=== PATIENT | female | born 1945 | race Two or more races ===

== ENCOUNTER → 2020-03-11 | Outpatient (CLI) | payer OTHER ==
[~2020-03-11] MED LIST: ACET500 PO; ALBU90OI INH; ATOR20 PO; ATOR40TA PO; ATORVASTATIN CA80 MG PO; Aspir 8181 MG PO; BENZONATATE100 MG PO; CHEMOTHERAPY; DOCU100 PO; FLUT1DIS5 INH; IPRAT-ALBUT 0.5-3 ML NEB; Keflex500 MG PO; LEVFLO500 PO; LISI20 PO; LOSA50 PO; LOSARTAN POTASS50 MG PO; METO25ER PO; METOPROLOL PO; OMEP20ER PO; ONDA8 PO; Pentoxifylline400 MG PO; Prednisone20 MG PO; TIOT18 INH; VENTOLIN HFA 90 MCG; Zithromax250 MG PO
[2020-03-12 17:09] LABS: ADENOVIRUS F 40/41 Not Detected (Not Detected); ASTROVIRUS Not Detected (Not Detected); C DIFFICILE TOXIN A/B Not Detected (Not Detected); CAMPYLOBACTER Not Detected (Not Detected); CRYPTOSPORIDIUM Not Detected (Not Detected); CYCLOSPORA CAYETANENSIS Not Detected (Not Detected); ENTAMOEBA HISTOLYTICA Not Detected (Not Detected); ENTEROAGGREGATIVE E COLI Not Detected (Not Detected); ENTEROPATHOGENIC E COLI Not Detected (Not Detected); ENTEROTOXIGENIC E COLI Not Detected (Not Detected); GIARDIA LAMBLIA Not Detected (Not Detected); NOROVIRUS GI/GII Not Detected (Not Detected); PLESIOMONAS SHIGELLOIDES Not Detected (Not Detected); ROTAVIRUS A Not Detected (Not Detected); SALMONELLA Not Detected (Not Detected); SAPOVIRUS Not Detected (Not Detected); SHIGA-TOXIN-PRODUCING E COLI Not Detected (Not Detected); SHIGELLA/ENTEROINVASIVE E COLI Not Detected (Not Detected); VIBRIO Not Detected (Not Detected); VIBRIO CHOLERAE Not Detected (Not Detected); YERSINIA ENTEROCOLITICA Not Detected (Not Detected)
== END | disposition home or self-care (01) ==
LOC: LAB 13:09 → LAB SHORT 13:09
PROVIDERS: Family Medicine
DX: R19.7 Diarrhea, unspecified (principal)
CPT/HCPCS: 0097U; 83993

== ENCOUNTER 2020-04-08 15:00 | Inpatient (IN) | payer OTHER ==
[~2020-04-08] VITALS: Ht 165.1 cm; Wt 73.1 kg
[~2020-04-08 15:00] MED LIST changes: -ACET500 PO; -ALBU90OI INH; -ATOR40TA PO; -Aspir 8181 MG PO; -BENZONATATE100 MG PO; -FLUT1DIS5 INH; -IPRAT-ALBUT 0.5-3 ML NEB; -LOSA50 PO; -METO25ER PO; -OMEP20ER PO; -Pentoxifylline400 MG PO
[2020-04-08 15:17] LABS: BASOPHILS ABSOLUTE AUTO 0.13 K/mm3 (0.00-0.23); BASOPHILS PERCENT AUTO 1 % (0-2); EOSINOPHILS ABSOLUTE AUTO 0.04 K/mm3 (0.00-0.68); EOSINOPHILS PERCENT AUTO 0 % (0-6); Hematocrit 39.7 % (33.0-51.0); Hemoglobin 11.2 g/dL (11.5-16.0); IMMATURE GRAN ABSOLUTE AUTO 0.25 K/mm3 (0.00-0.10); IMMATURE GRAN PERCENT AUTO 1 % (0-1); LYMPHOCYTES ABSOLUTE AUTO 3.41 K/mm3 (0.84-5.20); LYMPHOCYTES PERCENT AUTO 17 % (21-46); MONOCYTES PERCENT AUTO 2 % (4-13); Mean Corpuscular HGB 23.5 pg (26.0-34.0); Mean Corpuscular HGB Conc 28.2 g/dL (31.5-36.5); Mean Corpuscular Volume 83 fL (80-100); Mean Platelet Volume 10.3 fL (9.1-12.4); NEUTROPHILS ABSOLUTE AUTO 16.12 K/mm3 (1.96-9.15); NEUTROPHILS PERCENT AUTO 79 % (41-73); Platelet Count 443 K/mm3 (150-400); RDW Coefficient Variation 22.4 % (11.7-14.2); Red Blood Cell Count 4.76 M/mm3 (3.80-5.20); White Blood Cell Count 20.35 K/mm3 (4.00-11.30)
[2020-04-08 15:32] LABS: International Normalized Ratio 1.01; Prothrombin Time Results 10.8 Sec (9.7-11.5)
[2020-04-08] MEDS ORDERED: LOSA50 PO (15:51)
[2020-04-08] MEDS ORDERED: METO25ER PO (15:52)
[2020-04-08] MEDS ORDERED: ATOR40TA PO (15:53)
[2020-04-08] MEDS ORDERED: TIOT18 INH (15:54)
[2020-04-08] MEDS ORDERED: IPRAT-ALBUT 0.5-3 ML NEB (15:55)
[2020-04-08] MEDS ORDERED: ALBU90OI INH (15:55)
[2020-04-08] MEDS ORDERED: OMEP20ER PO (15:56)
[2020-04-08] MEDS ORDERED: Pentoxifylline400 MG PO (15:56)
[2020-04-08] MEDS ORDERED: FLUT1DIS5 INH (15:57)
[2020-04-08] MEDS ORDERED: Aspir 8181 MG PO (15:58)
[2020-04-08 15:59] LABS: Alanine Aminotransfer (ALT/SGP 31 U/L (12-78); Albumin, Blood 3.3 g/dL (3.4-5.0); Albumin/Globulin Ratio 0.7 (0.8-1.8); Alk Phos 91 U/L (50-136); Anion Gap 9 mmol/L (6-16); Aspartate Aminotrans (AST/SGOT 39 U/L (12-37); Bilirubin, Total 0.3 mg/dL (0.1-1.0); Blood Urea Nitrogen 18 mg/dL (8-24); Bun/Creatinine Ratio 23.1 (12.0-20.0); CO2, Blood 26 mmol/L (21-32); Chloride, Blood 100 mmol/L (98-108); Creatinine, Blood 0.78 mg/dL (0.40-1.00); Globulin, Blood 4.5 g/dL (2.2-4.0); Glomerular Filtration Rate >60 (60-); Glucose, Blood 490 mg/dL (70-99); Potassium, Blood 4.8 mmol/L (3.5-5.5); Sodium, Blood 135 mmol/L (136-145); Total Protein, Blood 7.8 g/dL (6.4-8.2)
[2020-04-08 16:06] LABS: Troponin I 0.789 ng/mL (0.000-0.040)
[2020-04-08 16:17] LABS: Influenza A, PCR Negative (NEGATIVE); Influenza B, PCR Negative (NEGATIVE); SARS-Cov-2 (COVID-19) PCR, MMC Negative (NEGATIVE)
[2020-04-08 16:18] LABS: Resp Syncytial Virus, PCR Negative (NEGATIVE)
[2020-04-08] MEDS ORDERED: BENZONATATE100 MG PO (17:32)
[2020-04-08] MEDS ORDERED: ACET500 PO (17:33)
--- NOTE | 2020-04-08 19:00 | NUR ---
ASSUMED CARE NOTE: ASSUMED CARE OF PT AT 1900, RECEVIED REPORT FROM DEBI CARRERO. PT IS ALERT AND ORIENTEDX4. PT ABLE TO ANSWER QUESTIONS APPROPRIATLY. PT ON BIPAP WITH SETTINGS AT 14/8, FiO2 100% PT IN TRIPOD POSITION. SPO2 AT 95% LABORED BREATHING NOTED. RIGHT THORA VENT IN PLACE CONNECTED TO WATERSEAL, SMALL AMOUNTS OF SEROSANGUANEIOUS NOTED. PT STS SHE CANNOT LAY FLAT, DUE TO INCREASED DYSPNEA. BP STABLE. PT STS HER RIGHT LOWER LEG IS ALWAYS MORE SWOLLEN. CALLED MARILEE, HER CAREGIVER FOR MED REC AND HEALTH HISTORY.
--- NOTE | 2020-04-08 19:10 | NUR ---
PT ARRIVES FROM ER AT 1900. REPORT FROM TOMASA CARRERO. PT ADMITTED FOR RESP FAILURE. PT SPEAKING IN SHORT SENTANCES. ANSWERS QUESTIONS APPROPRIATELY. REQUESTING THAT BIPAP MASK BE TAKEN OFF, ALSO REQUESTING WATER. INFORMED THAT WE ARE UNABLE TO DO EITHER AT THIS TIME. AGREEABLE TO WEAR BIPAP. FIO2 100%. THORAVENT TO RIGHT CHEST WALL, ARRIVES TO UNIT CLAMPED. PLACED TO WATER SEAL. PER CHUYITA LONGO, PT TO REMAIN IN [place] PRECAUTIONS UNTIL REPEAT COVID TEST IS RESULTED. REPORT TO TONY CARRERO.
[2020-04-08 20:43] LABS: Adenovirus Not Detected (NOT DETECT); Bordetella pertussis Not Detected (NOT DETECT); Chlamydophila pneumoniae Not Detected (NOT DETECT); Coronavirus 229E Not Detected (NOT DETECT); Coronavirus HKU1 Not Detected (NOT DETECT); Coronavirus NL63 Not Detected (NOT DETECT); Coronavirus OC43 Not Detected (NOT DETECT); Human Metapneumovirus Not Detected (NOT DETECT); Human Rhinovirus/Enterovirus Not Detected (NOT DETECT); Influenza A/2009-H1 Not Detected (NOT DETECT); Influenza A/H1 Not Detected (NOT DETECT); Influenza A/H3 Not Detected (NOT DETECT); Influenza B Not Detected (NOT DETECT); Mycoplasma pneumoniae Not Detected (NOT DETECT); Parainfluenza Virus 1 Not Detected (NOT DETECT); Parainfluenza Virus 2 Not Detected (NOT DETECT); Parainfluenza Virus 3 Not Detected (NOT DETECT); Parainfluenza Virus 4 Not Detected (NOT DETECT); Respiratory Syncytial Virus Not Detected (NOT DETECT); SARS-Cov-2 (COVID-19), BioFire Not Detected (NOT DETECT)
[2020-04-08 21:13] LABS: Source, Urine Catheter
[2020-04-08 21:16] LABS: Appearance, Urine Hazy (Clear); Bilirubin, Urine Neg (Neg); Blood, Urine 2+ (Neg); Color, Urine Yellow (P-Yellow); Glucose Qualitative, Urine 2+ (Neg); Ketones, Urine 1+ (Neg); Leukocyte Esterase, Urine Neg (Neg); Nitrite, Urine Neg (Neg); Protein, Urine 3+ (Neg); Urobilinogen, Urine NORM (Normal)
[2020-04-08 21:22] LABS: Bacteria Many /hpf; Red Blood Cells, Urine 0-2 /hpf (0-2); Squamous Epithelial Cells Few /hpf (Few)
[2020-04-08 21:34] LABS: Magnesium, Blood 2.4 mg/dL (1.6-2.4)
[2020-04-08 21:38] LABS: Phosphorus, Blood 5.8 mg/dL (2.5-4.9); Troponin I 2.06 ng/mL (0.000-0.040)
--- NOTE | 2020-04-08 21:46 | NUR ---
UPDATE: 16F SRIVASTAVA PLACED, DRAINING TO GRAVITY, YELLOW CLOUDY URINE NOTED, URINE SAMPLE SENT TO LAB. PT WAS ABLE TO TOLERATE BEING ON BACK DURING SRIVASTAVA INSERTION. TALKED TO PATIENT REGARDING CT AND IF SHE AGREED TO BE ABLE TO GO TODAY. CHUYITA AGGARWAL NOTIFED OF PT DECISION. HEPARIN DRIP STARTED PER EMAR.
[2020-04-08 21:50] LABS: PCO2 Arterial 47.2 mmHg (35-45); PO2 Arterial 133 mmHg (80-100)
--- NOTE | 2020-04-09 03:00 | NUR ---
CALLED REGARDING ELEVATED BP, INCREASED WORK OF BREATHING, RR IN THE HIGH 30'S, CRACKLES HEARD T/O. LASIX ORDERED. NS AT 100ML/HR TURNED OFF. PT STS SHE IS ANXIOUS, ATIVAN GIVEN PER EMAR.
[2020-04-09 03:13] LABS: BASOPHILS ABSOLUTE AUTO 0.01 K/mm3 (0.00-0.23); BASOPHILS PERCENT AUTO 0 % (0-2); EOSINOPHILS PERCENT AUTO 0 % (0-6); Hematocrit 33.3 % (33.0-51.0); Hemoglobin 9.8 g/dL (11.5-16.0); IMMATURE GRAN ABSOLUTE AUTO 0.08 K/mm3 (0.00-0.10); IMMATURE GRAN PERCENT AUTO 1 % (0-1); LYMPHOCYTES ABSOLUTE AUTO 0.92 K/mm3 (0.84-5.20); LYMPHOCYTES PERCENT AUTO 7 % (21-46); MONOCYTES ABSOLUTE AUTO 0.16 K/mm3 (0.16-1.47); MONOCYTES PERCENT AUTO 1 % (4-13); Mean Corpuscular HGB 23.8 pg (26.0-34.0); Mean Corpuscular HGB Conc 29.4 g/dL (31.5-36.5); Mean Corpuscular Volume 81 fL (80-100); Mean Platelet Volume 10.4 fL (9.1-12.4); NEUTROPHILS ABSOLUTE AUTO 12.22 K/mm3 (1.96-9.15); NEUTROPHILS PERCENT AUTO 91 % (41-73); Platelet Count 240 K/mm3 (150-400); RDW Coefficient Variation 22.4 % (11.7-14.2); RDW Standard Deviation 64.6 fL (35.1-46.3); Red Blood Cell Count 4.11 M/mm3 (3.80-5.20); White Blood Cell Count 13.39 K/mm3 (4.00-11.30)
[2020-04-09 03:30] LABS: Anion Gap 8 mmol/L (6-16); Blood Urea Nitrogen 22 mg/dL (8-24); Bun/Creatinine Ratio 28.2 (12.0-20.0); CO2, Blood 24 mmol/L (21-32); Calcium, Blood 8.8 mg/dL (8.5-10.1); Chloride, Blood 107 mmol/L (98-108); Creatinine, Blood 0.78 mg/dL (0.40-1.00); Glomerular Filtration Rate >60 (60-); Glucose, Blood 138 mg/dL (70-99); Potassium, Blood 4.3 mmol/L (3.5-5.5); Sodium, Blood 139 mmol/L (136-145)
--- NOTE | 2020-04-09 03:56 | NUR ---
UPDATE: HEPARIN PLACED ON STAND-BY, RADHA FROM PHARMACY CALLED. WILL REDRAW PTT AT 0440 AND RESTART HEPARIN AT 13U/KG/HR.
--- NOTE | 2020-04-09 05:48 | NUR ---
SHIFT SUMMARY: PT CONTINUES TO BE ALERT AND ORIENTEDX4. PT CONTINUES TO BE ON BIPAP 10/12, FiO2 OF 50%, SPO2 AT 95% PT RR AT 20 WHEN AT REST, WITH EXERTION RR UP TO 39. PT BECOMES ANXIOUS AND NEEDS TO BE COACHED TO CONTROL BREATHING. PT GIVEN ATIVAN ONCE THIS SHIFT FOR ANXIETY. PT HAS BEEN IN NSR WITH HR BETWEEN 80-90. SBP IN THE 170'S THIS SHIFT, DECREASED AFTER LASIX DOSE. GOOD URINE OUTPUT THIS SHIFT, SRIVASTAVA PATENT AND DRAINING TO GRAVITY. PT BOOSTED UP IN BED FREQUENTLY THIS SHIFT. PT DOES NOT LIKE TO BE REPOSITIONED FROM SIDE TO SIDE, STS IT MAKES HER BREATHING WORSE. SLIGHT SHIFTS IN HIPS MADE THIS SHIFT WITH PILLOWS WHEN PT AGREES. PT GIVEN FENTYNAL FOR PAIN TO THE RIGHT SIDE OF CHEST, STS ITS WORSE WITH COUGH. WILL CONTINUE TO MONITOR PT UNTIL REPORT IS GIVEN TO ONCOMING SHIFT.
--- NOTE | 2020-04-09 07:30 | NUR ---
ASSUMED CARE OF PT AT 0700. REPORT FROM TONY CARRERO. PT RESTING IN BED. WAKES c VERBAL STIMULI. FOLLOWS COMMANDS. A&OX 4. PT C/O DRYNESS TO MOUTH. LUNGS DIMINISHED IN BASES. PT P/W/D. BIPAP IN PLACE, 14/8 50%. HEPARIN STARTED AT SHIFT CHANGE PER PHARMACY, 13 UNITS/KG/HR. THORAVENT TO RIGHT ANTERIOR CHEST WALL. ECCHYMOSIS NOTED, SCANT BLOODY DRAINAGE UNDER DRESSING. CONNECTED TO WATER SEAL. NO CREPITIS NOTED. ABD ROUND, SOFT, TENDER TO LIGHT PALPATION. SRIVASTAVA IN PLACE, PATENT, DRAINING CLOUDY YELLOW URINE TO GRAVITY. PT IN EMERSON POSITION. ABLE TO SHIFT HIPS AND REPOSITION SELF IN BED. VSS. WILL CONTINUE TO MONITOR.
--- NOTE | 2020-04-09 09:49 | NUR ---
DR PERALES ROUNDS PT TAKEN OFF BIPAP. PLACED ON OXYMIZER AT 12 L. O2 SATS 94%. RR. HIGH20'S. ENCOURAGED SLOW DEEP RESP. PT REPORTS SLIGHT INCREASED WOB s BIPAP. WILL MONITOR CLOSELY. WATER SEAL CONNECTED TO DRAIN PORT. DISCONNECTED. SUCTION PORT CAPPED. AWAITING ECHO.
--- NOTE | 2020-04-09 17:06 | NUR ---
Clinical Visit: Pt is alert, oriented, pleasant. Pt has her friend, Irene, present. They are asking for POA paperwork and advance directive documents to fill out. Pt reports that her daugher, Wen, is dying of colon cancer, so she has to fill out new forms for her future planning now. Presented and explained advance directive. Instructed on how to complete the form. Provided forms for [place] Last Will and Testament; also [place] POA paperwork to assist with their planning. [facility] they leave the hospital. They have some urgency with this task. They are appreciative of palliative care visit. Pt reports that she is "uncomfortable" but not in pain. Will remain available.
--- NOTE | 2020-04-09 17:24 | NUR ---
SHIFT SUMMARY PT TRANSITIONED TO OXYMIZER THIS SHIFT. TOLERATED WELL. PT INCREASED WOB AND DYSNEA c EXERTION. LUNGS DIMINISHED IN BASES. THORAVENT PORTS REMAIN CLOSED. DRESSING REINFORCED. NO CREPITIS NOTED. SLIGHT INCREASE IN ECCHYMOSIS. HTN NOTED. DR DIAZ NOTIFIED. HOME MEDS ORDERED. SPEECH EVAL UNABLE TO BE COMPLETED TODAY. PT TOLERATED SIPS OF WATER s DIFFICULTIES. DIET HELD. ECHO COMPLETE TODAY. TROPONINS TRENDING DOWN. HEPARIN D/C'D. ANTIBIOTICS CHANGED. SRIVASTAVA PATENT AND DRAINING TO GRAVITY, 1600 ML CLEAR YELLOW URINE OUT. WILL CONTINUE TO MONITOR.
--- NOTE | 2020-04-09 19:02 | NUR ---
echocardiogram complete
--- NOTE | 2020-04-09 19:03 | NUR ---
echocardiogram complete
--- NOTE | 2020-04-09 19:58 | NUR ---
ASSUMED CARE NOTE: ASSUMED CARE OF PT AT 1900, RECEVIED REPORT FROM DEBI CARRERO. PT IS ALERT AND ORIENTED X3, ABLE TO FOLLOW COMMANDS AND COMMUNICATE NEEDS. PT IS ON 10L OF 02 VIA OXYMIZER, WITH SPO2 AT 98%, WILL TITRATE DOWN. NO RESPRIATORY DISTRESS NOTED. PT HAS A MOIST COUGH. PT IN SINUS TACH WITH HR AT 113. THORA VENT TO RIGHT CHEST, BRUSING NOTED AROUND INSERTION SITE. SRIVASTAVA DRAINING TO GRAVITY. PT REFUSED TO BE BOOSTED UP IN BED OR REPOSITIONED. STS THE BED IS UNCOMFORTABLE AND THAT SHE WILL MOVE HERSELF WHEN NEEDED
[2020-04-10 04:01] LABS: BASOPHILS ABSOLUTE AUTO 0.02 K/mm3 (0.00-0.23); BASOPHILS PERCENT AUTO 0 % (0-2); EOSINOPHILS PERCENT AUTO 0 % (0-6); Hematocrit 30.3 % (33.0-51.0); Hemoglobin 8.9 g/dL (11.5-16.0); IMMATURE GRAN ABSOLUTE AUTO 0.12 K/mm3 (0.00-0.10); IMMATURE GRAN PERCENT AUTO 1 % (0-1); LYMPHOCYTES PERCENT AUTO 3 % (21-46); MONOCYTES ABSOLUTE AUTO 0.22 K/mm3 (0.16-1.47); MONOCYTES PERCENT AUTO 1 % (4-13); Mean Corpuscular HGB 24.1 pg (26.0-34.0); Mean Corpuscular HGB Conc 29.4 g/dL (31.5-36.5); Mean Corpuscular Volume 82 fL (80-100); Mean Platelet Volume 10.7 fL (9.1-12.4); NEUTROPHILS ABSOLUTE AUTO 14.94 K/mm3 (1.96-9.15); NEUTROPHILS PERCENT AUTO 95 % (41-73); Platelet Count 261 K/mm3 (150-400); RDW Coefficient Variation 23.7 % (11.7-14.2); RDW Standard Deviation 67.6 fL (35.1-46.3)
[2020-04-10 04:22] LABS: Magnesium, Blood 2.6 mg/dL (1.6-2.4)
[2020-04-10 04:23] LABS: Anion Gap 3 mmol/L (6-16); Blood Urea Nitrogen 26 mg/dL (8-24); Bun/Creatinine Ratio 41.5 (12.0-20.0); CO2, Blood 30 mmol/L (21-32); Chloride, Blood 109 mmol/L (98-108); Creatinine, Blood 0.63 mg/dL (0.40-1.00); Glomerular Filtration Rate >60 (60-); Glucose, Blood 169 mg/dL (70-99); Phosphorus, Blood 3.1 mg/dL (2.5-4.9); Potassium, Blood 4.4 mmol/L (3.5-5.5); Sodium, Blood 142 mmol/L (136-145)
--- NOTE | 2020-04-10 05:44 | NUR ---
SHIFT SUMMARY: PT CONTINUES TO BE ON 6-8 L OF O2 VIA OXYMIZER, WITH SPO2 AT 93-97% WHEN PT MOVES AROUND IN BED, SHE BECOMES TACHYPNIC, RR IN THE MID 30'S. PT IN SINUS TO SINUS TACH HR BETWEEN 90-110. PRN BP MEDS GIVEN THIS SHIFT FOR SBP HIGHER THAN 160, WITH GOOD EFFECT. PT GIVEN ATIVAN PRN FOR ANXIETY, GOOD EFFECT NOTED. PT HAS BEEN ANXIOUS AND UNABLE TO CATCH HER BREATH, SATURATIONS DURING THESE TIMES ARE ABOVE 90% PT IS ABLE TO BE COACHED TO CONTROL BREATHING. CHEST TUBE TO RIGHT CHEST STILL IN PLACE, VALVES HAVE REMAINED CLOSED. SRIVASTAVA PATENT AND DRAINING TO GRAVITY. PT HAS REFUSED REPOSITIONS THIS SHIFT, SHIFTS WEIGHT IN BED FROM SIDE TO SIDE AND IS LIMITED IN MOVEMENT DUE TO DYSPNEA WITH ACTIVITY.
--- NOTE | 2020-04-10 06:32 | NUR ---
UPDATE: WORK OF BREATHING INCREASED, PT HAS A WET COUGH, WHEEZY T/O. INCREASED SPO2 TO 10L OF OXYMIZER. PT STS SHE NEEDS WATER, EXPLAINED TO PT THAT SHE CANNOT HAVE WATER DUE RISK OF ASPIRATION. PT GIVEN ORAL SWABS TO HELP THE DRY MOUTH. RT CALLED TO BEDSIDE
--- NOTE | 2020-04-10 06:45 | NUR ---
UPDATE: PT PLACED ON BIPAP 04/03, FiO2 AT 50% RR IN THE MID 30% , SPO2 AT 95% PT UPSET SHE CANNOT HAVE ANY WATER AT THIS TIME.
--- NOTE | 2020-04-10 08:56 | NUR ---
ASSUMED CARE OF PT AT 0700. REPORT FROM TONY CARRERO. PT ON BIPAP AT START OF SHIFT. CHANGED TO OXYMIZER AT 10L. O2 SATS >95%. WILL CONTINUE TO TITRATE. LUNGS COARSE c EXPIRATORY WHEEZES IN RIGHT LOBE. MOIST COUGH NOTED. PT C/O DRY MOUTH. THORAVENT TO RIGHT CHEST WALL. ECCHYMOSIS NOTED. SERISANGIOUS DRAINAGE IN BOX. PT SPEAKING IN FULL SENTANCES. DYSNEA c EXERTION. MAEW. PT ABLE TO SHIFT HIPS AND REPOSITION SELF IN BED. VSS. WILL CONTINUE TO MONITOR.
--- NOTE | 2020-04-10 17:09 | NUR ---
SHIFT SUMMARY PT ON 3L VIA NC. PT TOLERATING WELL. WHEN PT UNDISTURBED, RR 15-25. PT BECOMES TACHYPENIC DURING ASSESSMENTS OR WHEN VISITORS ARE IN ROOM. ENCOURAGED SLOW RESP, O2 SATS >88% DURING THESE TIMES. LUNGS DIMINISHED THROUGHOUT. THORAVENT TO RIGHT CHEST WALL UNCHANGED. 10 ML OF SERISANGIOUS FLUID REMOVED. NO AIR LEAK DETECTED. ANTICIPATE REMOVAL TOMORROW. PT c MOIST COUGH, INCREASED DURING THIS SHIFT. PT c INTERMITTANT PERIODS OF CONFUSION, REORIENTS EASILY. CAREGIVER STATES THIS IS NORMAL FOR HER. UP TO CHAIR FOR SEVERAL HOURS. TOLERATED WELL. SRIVASTAVA PATENT, DRAINING CLEAR YELLOW URINE TO GRAVITY. LR @ 75 ML/HR STARTED THIS SHIFT. ADDRESSED NPO STATUS c DR DIAZ, OK'D FOR PUREE DIET c NECTAR THICK. AWAITING SPEECH EVAL TOMORROW. WILL CONTINUE TO MONITOR UNTIL REPORT TO ONCOMING NURSE.
--- NOTE | 2020-04-10 19:00 | NUR ---
ASSUMED CARE NOTE: ASSUMED CARE OF PT AT 1900, RECEVIED REPORT FROM DEBI CARRERO. PT IS ALERT AND ORIENTED TO SELF, PLACE, AND FOLLOWING DIRECTIONS. PT ON 3L VIA NC, WHICH IS BASELINE, SPO2 ABOVE 90% BREATHING LABORED, RR IN THE 30'S, RT AT BEDSIDE. PT HAVING NON-PRODUCTIVE COUGH. PT IS IN SINUS TACH WITH HR BETWEEN 90-120. SRIVASTAVA PATENT DRAINING TO GRAVITY. PT POSITIONED IN HIGH FOLWERS, TAKING MEDS WHOLE WITH NECTAR THICK WATER. NO SIGNS OF ASPIRATION NOTED. WILL CONTINUE TO MONITOR PT T/O SHIFT.
--- NOTE | 2020-04-10 23:03 | NUR ---
UPDATE: PT STS SHE IS HAVING A HARD TIME BREATHING. RR IN THE HIGH 30'S, SPO2 AT 85% WORK OF BREATHING INCREASED. PT PLACED ON BIPAP /, FiO2 AT 40%, SPO2 INCREASE TO 93% ATIVAN GIVEN PRN. BP MEDS ALSO GIVEN FOR SBP OF 180.
--- NOTE | 2020-04-11 01:08 | NUR ---
UPDATE: PT STS SHE IS CONFUSED, UNABLE TO STATE WHERE SHE IS. ABLE TO STATE [place] AND YEAR. PT STS SHE DOES NOT WANT THE BIPAP MASK, IS ANXIOUS AND STS SHE CANNOT BREATH. PT PLACED ON 5L OF 02 VIA NC, SPO2 AT 95% SBP 200. CALLED , ORDERS TO PLACE PT ON PRECEDEX AND BACK ON BIPAP. RT MADE AWARE. BP MEDS CHANGED, SEE EMAR.
[2020-04-11 03:33] LABS: BASOPHILS PERCENT AUTO 0 % (0-2); EOSINOPHILS PERCENT AUTO 0 % (0-6); Hematocrit 27.6 % (33.0-51.0); IMMATURE GRAN ABSOLUTE AUTO 0.08 K/mm3 (0.00-0.10); IMMATURE GRAN PERCENT AUTO 1 % (0-1); LYMPHOCYTES ABSOLUTE AUTO 0.42 K/mm3 (0.84-5.20); LYMPHOCYTES PERCENT AUTO 5 % (21-46); MONOCYTES ABSOLUTE AUTO 0.22 K/mm3 (0.16-1.47); MONOCYTES PERCENT AUTO 3 % (4-13); Mean Corpuscular HGB 24.1 pg (26.0-34.0); Mean Corpuscular Volume 83 fL (80-100); Mean Platelet Volume 10.7 fL (9.1-12.4); NEUTROPHILS ABSOLUTE AUTO 7.97 K/mm3 (1.96-9.15); NEUTROPHILS PERCENT AUTO 92 % (41-73); Platelet Count 223 K/mm3 (150-400); RDW Coefficient Variation 23.9 % (11.7-14.2); Red Blood Cell Count 3.32 M/mm3 (3.80-5.20); White Blood Cell Count 8.69 K/mm3 (4.00-11.30)
[2020-04-11 03:50] LABS: Anion Gap 2 mmol/L (6-16); Blood Urea Nitrogen 33 mg/dL (8-24); Bun/Creatinine Ratio 54.9 (12.0-20.0); CO2, Blood 31 mmol/L (21-32); Chloride, Blood 113 mmol/L (98-108); Glomerular Filtration Rate >60 (60-); Glucose, Blood 174 mg/dL (70-99); Magnesium, Blood 2.5 mg/dL (1.6-2.4); Phosphorus, Blood 2.5 mg/dL (2.5-4.9); Potassium, Blood 4.1 mmol/L (3.5-5.5); Sodium, Blood 146 mmol/L (136-145)
--- NOTE | 2020-04-11 06:26 | NUR ---
SHIFT SUMMARY: SEE PREVIOUS NOTES. PT BECAME CONFUSED EARLIER IN THE SHIFT, UNABLE TO TAKE DEEP BREATHS, SPO2 IN THE 70'S. PT CONTINUES TO BE ON BIPAP WITH SETTINGS AT 12/6, FiO2 OF 30%, SPO2 ABOVE 90% RR BETWEEN 18-25. PT WAS PLACED ON PRECEDEX THIS TO HELP WITH BIPAP. PT CONTINUES TO BE CONFUSED AND RESTRAINTS WERE APPLIED TO KEEP BIPAP ON. PT WILL PULL ON LINES AND BIPAP OFF WHEN OUT OF RESTRAINTS AND WILL SCREAM "NO NO" PT CONTINUES TO COUGH, NO SECRETIONS NOTED. PT IS IN SINUS RYTHYM WITH HR IN THE 70'S-80'S. SRIVASTAVA DRAINING TO GRAVITY. PT BOOSTED UP IN BED OFTEN. PRECEDEX AT 0.6MCG/KG/HR. WILL CONTINUE TO MONITOR PT UNTIL REPORT IS GIVEN TO ONCOMING SHIFT.
--- NOTE | 2020-04-11 08:15 | NUR ---
ASSESSMENT- PT ASLEEP, OPENS EYES TO NAME, PRECEDEX AT 0.6 MCG/KG/HR-DECREASING TO ASSESS MENTAL STATUS. DOESN'T FOLLOW DIRECTIONS. NSR, BP STABLE. 2 PIV WITH LR AT 50 CC/HR, NS TKO. LUNGS CLEAR, DECREASED LEFT BASE, NO RESPIRATORY DISTRESS AT REST, RIGHT UPPER THORAVENT INTACT, 13 CC DRAINED OFF SEROSANG FLUID. UO VIA SRIVASTAVA. REPOSITIONED. BILATERAL WRIST RESTRAINTS TO PREVENT PULLING OF OXYGEN.
--- NOTE | 2020-04-11 09:00 | NUR ---
PRECEDEX TITRATED OFF, CHANGED TO NASAL CANNULA, SATURATIONS MAINTAINING, ABLE TO FOLLOW BRIEF COMMANDS, KNOWS NAME, STATES SHE IS "IN HER ATTIC", EXPLAINED PLAN OF CARE. REASSURANCE GIVEN. WILL MONITOR.
--- NOTE | 2020-04-11 09:15 | NUR ---
PT VERY CONFUSED, PULLING AT LINES, UNABLE TO FOLLOW DIRECTIONS. INCREASED WORK OF BREATHING, SATURATIONS STABLE BUT RESP RATE UP TO 30 BPM, BP ELEVATED PRECEDEX RESTARTED, BIPAP ON, RESTING NOW.
[2020-04-11 10:39] LABS: Automated BF RBC Count 0.011 M/mm3 (0-0); Automated BF WBC Count 0.459 K/mm3 (0-999); Body Fluid WBC Count 459 /mm3 (0-999); RBC Count, Body Fluid 11000 /mm3 (0-0)
[2020-04-11 11:01] LABS: Glucose, Body Fluid 119 mg/dL; Lactate Dehydrogenase, Body Fl 443 U/L; Protein, Body Fluid 2.8 g/dL
[2020-04-11 11:18] LABS: pH, Body Fluid 8.4
[2020-04-11 11:31] LABS: Appearance, Body Fluid Hazy (Clear); Color, Body Fluid L Yellow (None-Yellow); Total Cell Count, Body Fluid 100
--- NOTE | 2020-04-11 11:39 | NUR ---
DR. ACEVEDO HERE-UPDATED. PLANS TO DC THORAVENT TODAY. PT HAS BEEN RESTING. BIPAP OFF NOW, MAINTAINING SATURATIONS WITH NASAL CANNULA. PT WITH PARANOID BEHAVIOR, CONFUSED. ATTEMPT TO REASSURE BUT UNABLE. REFUSED PILLS, TRIES TO PULL ALL LINES OFF. REPOSITIONED. PLEURAL FLUID SENT FOR LABS/CULTURE PER DR. ACEVEDO. CONGESTED COUGH. BP ELEVATES WHEN AWAKE, UNCOMFORTABLE.
--- NOTE | 2020-04-11 12:25 | NUR ---
DR. MELENDEZ HERE-UPDATED, SPOKE WITH DR. ACEVEDO REGARDING THORAVENT. DR. GARDNER HERE-UPDATED REGARDING PT'S PARANOID BEHAVIOR, ELEVATED BP-IV LABETOLOL ORDERED.
[2020-04-11 12:27] LABS: Alanine Aminotransfer (ALT/SGP 53 U/L (12-78); Albumin, Blood 3.1 g/dL (3.4-5.0); Albumin/Globulin Ratio 0.9 (0.8-1.8); Alk Phos 61 U/L (50-136); Anion Gap 3 mmol/L (6-16); Aspartate Aminotrans (AST/SGOT 41 U/L (12-37); Bilirubin, Total 0.4 mg/dL (0.1-1.0); Blood Urea Nitrogen 33 mg/dL (8-24); Bun/Creatinine Ratio 57.6 (12.0-20.0); CO2, Blood 31 mmol/L (21-32); Calcium, Blood 9.3 mg/dL (8.5-10.1); Chloride, Blood 112 mmol/L (98-108); Creatinine, Blood 0.57 mg/dL (0.40-1.00); Globulin, Blood 3.6 g/dL (2.2-4.0); Glomerular Filtration Rate >60 (60-); Glucose, Blood 154 mg/dL (70-99); LDL Direct Measurement 63 mg/dL (0-130); Sodium, Blood 146 mmol/L (136-145); Total Protein, Blood 6.7 g/dL (6.4-8.2)
--- NOTE | 2020-04-11 12:50 | NUR ---
DR. ACEVEDO IN TO REMOVE THORAVENT. NO SIGNS OF BLEEDING. 4X4 AND CLEAR OCCLUSIVE DRESSING PLACED. GECKCO NASAL PAD PLACED OVER THE BRIDGE OF THE NOSE PT WAS COMPLAINING THAT THE BIPAP MASK WAS HURTING HER NOSE. PT REMOVED THE MASK-DESPITE BEING IN BILATERAL SOFT WRIST RESTRAINTS. TITRATED PRECEDEX UP TO 0.7 MCG/MIN-PT RESTING QUIETLY ON BIPAP AT THIS TIME. SATS >90%.
--- NOTE | 2020-04-11 14:15 | NUR ---
VSS, PRECEDEX CONTINUES AT 0.7 AWAKENS EASILY TO NAME, CONFUSED. ABLE TO DO ORAL CARE-HAD REFUSED BEFORE.
--- NOTE | 2020-04-11 16:30 | NUR ---
VSS. HUNT, PT'S FRIEND HERE-UPDATED, TALKED WITH PALLIATIVE CARE RN. PT AWAKENS TO NAME. CONTINUE TO MONITOR
--- NOTE | 2020-04-11 17:42 | NUR ---
Initial spiritual care note: I met with Sherly's friend Irene, at bedside. Sherly slept peacefully throughout conversation. Irene has been taking care of Sherly for many years. She feels like family. Sherly has one dtr who has recently been told she is dying of cancer. Mother and dtr have a turbulent relationship according to Irene. Irene states that she doesn't want pt to suffer anymore. I provided theraputic listening and affirmation. Gentle insurance counselor was well recieved. Irene appears to understand that pt may be nearing end-of-life. Prayer for a clear path and God's seema provided at request. Irene and I had an easy rapport and I will remain available.
--- NOTE | 2020-04-11 18:15 | NUR ---
VSS. PRECEDEX AT 0.5, AWAKENS EASILY, REACHES FOR MASK WHEN AWAKE, EXPLAINED PLAN OF CARE, REASSURANCE GIVEN. NSR. SBP STABLE. REPOSITIONED, BILATERAL WRIST RESTRAINTS ON. UO GOOD VIA SRIVASTAVA
--- NOTE | 2020-04-11 20:29 | NUR ---
ASUMED CARE AT 1900/ AROUSED EASILY AND ORIRNTED TO SELF. SOME HESITATION TO USE INHALER OFFERED BY RT. SAID IT WAS SOMEONE ELSES. REASSURED. REMOVED BIPAP AT 04/03.. 30% FIO2 TV AVERAGE 600. RR AVERAGE 24. NOW AT 4L NC AND SATS WNL. ACCEPTS FULL MOUTH CARE W/ PEROXIDE SOLUTION. NO RESISTANCE OR REFUSAL. SATS WNL FOR ABOUT 40 MIN THEN STARTING TO GET ANXIOUS. AND RR 40. BIPAP BACK AT SAME SETTINGS. PRECEDEX AT 0.5MCG/KG/HR .. THEN WHILE RESTLESS AND PULLING AGAINST RESTRAINTS, PRECEDEX UP TO MAX OF 0.7MCG/KG/HR. SETTLING SLOWLY. WHILE OFF BIPAP, GOOD EFFORT TO COUGH AND SWALLOWS PRODUCED SPUTUM. RT CW YAMILE DSG , POST DC TODAY, DRY AND INTACT AND NO SUB Q EMPHYSEMA PALPATED.
--- NOTE | 2020-04-11 21:36 | NUR ---
DUE TO LEAKING RT AC PRECEDEX IV, REDUCED PRECEDEX FROM 0.5-0.2. VS WNL. IV DCD. CHANGED TO NEW SITE.
[2020-04-12 04:50] LABS: BASOPHILS ABSOLUTE AUTO 0.02 K/mm3 (0.00-0.23); BASOPHILS PERCENT AUTO 0 % (0-2); EOSINOPHILS PERCENT AUTO 0 % (0-6); Hemoglobin 8.7 g/dL (11.5-16.0); IMMATURE GRAN ABSOLUTE AUTO 0.17 K/mm3 (0.00-0.10); IMMATURE GRAN PERCENT AUTO 1 % (0-1); LYMPHOCYTES ABSOLUTE AUTO 0.57 K/mm3 (0.84-5.20); LYMPHOCYTES PERCENT AUTO 3 % (21-46); MONOCYTES ABSOLUTE AUTO 0.48 K/mm3 (0.16-1.47); MONOCYTES PERCENT AUTO 3 % (4-13); Mean Corpuscular HGB 23.9 pg (26.0-34.0); Mean Corpuscular HGB Conc 28.1 g/dL (31.5-36.5); Mean Corpuscular Volume 85 fL (80-100); Mean Platelet Volume 10.7 fL (9.1-12.4); NEUTROPHILS PERCENT AUTO 93 % (41-73); NRBC ABSOLUTE 0.03 K/mm3 (0.00-0.02); NRBC Auto 0.2 /100 WBC (0.0-0.2); Platelet Count 294 K/mm3 (150-400); RDW Coefficient Variation 23.6 % (11.7-14.2); Red Blood Cell Count 3.64 M/mm3 (3.80-5.20); White Blood Cell Count 17.24 K/mm3 (4.00-11.30)
[2020-04-12 05:10] LABS: Anion Gap 3 mmol/L (6-16); Blood Urea Nitrogen 42 mg/dL (8-24); Bun/Creatinine Ratio 61.4 (12.0-20.0); CO2, Blood 32 mmol/L (21-32); Calcium, Blood 8.7 mg/dL (8.5-10.1); Chloride, Blood 112 mmol/L (98-108); Creatinine, Blood 0.68 mg/dL (0.40-1.00); Glomerular Filtration Rate >60 (60-); Glucose, Blood 152 mg/dL (70-99); Magnesium, Blood 2.7 mg/dL (1.6-2.4); Phosphorus, Blood 4.7 mg/dL (2.5-4.9); Potassium, Blood 4.6 mmol/L (3.5-5.5); Sodium, Blood 147 mmol/L (136-145)
--- NOTE | 2020-04-12 06:15 | NUR ---
SHIFT SUMMARY. PRECEDEX TURNED OFF AT 0500 DUE TO SUDDEN DROP IN SATS WHILE DOING WELL ON 4L NC AFTER MOUTH CARE . VERY SLEEPY AND ANS QUESTION OF NAME AND ONLY. NO CONVERSATION, BUT COOPERATIVE W/ MOUTH CARE AND COUGH AND DEEP BREATHE TO REQUEST . LEFT ROOM FOR ABOUT 10 MIN AND SAT DROPS IN THE 70'S. AROUSED MORE VIGOROUSLY AND MOANS. PRECEDEX TURNED OFF. BP LOWER. BIPAP ON IMMEDIATELY AND RECOVERS IF FIO2 UP TO 55 % TEMPOARILY. HESITANT TO GIVE LABATOLOL LATER WHEN RESTLESS RISE IN BP DUE TO RECENT DROP. WILL OBSERVE FOR A FEW MORE HOURS. FREQUENTLY THROUGH NOC, PRECEDEX ADJUSTED AND W/ NO CHANGE IN EXERTION, SATS DROP WHILE ON 35% FIO2. MOVED TO 40%, FREQ. WHEN SATS DROP. BP ADDRESSED W/ LABATOLOL X1 , NOW AT 0630 STARTED PRECEDEX ON 0.2, FOR RESTLESSNESS. ORIENTED TO SELF AND CARE GIVERS NAME.POSITIONS SELF AND REPOSITIONED W/ PILOWS Q2HR. REQUESTS TO SIT WAY UP IN BED AND FREQ PULLED UP FOR HIGH FOWLERS. NPO. RR AVERAGE 30"S. ST AVERAGE 102. BREATH SOUNDS AREATED T/O AND NO NEW FINDINGS FRON AREA OF CHEST TUBE REMOVAL. PRECEDEX SLOWLY UP TO 0.5. WHILE PRESENTING RESTLESSNESS AND RR UP TO 40 .
--- NOTE | 2020-04-12 12:04 | NUR ---
PT RESTING ON THE BIPAP. HAS BEEN LETHARGIC TODAY. TITRATED PRECEDEX DOWN TO 0.1MCG/KG/MIN. HAVE BEEN IN CONTACT WITH CAREGIVER WHO WILL BE IN TO SEE PT SOON. PALLIATIVE CARE INVOLVED WELL. NO SIGN OF DISTRESS AT THE MOMENT.
--- NOTE | 2020-04-12 14:23 | NUR ---
Met with patient and her caregiver and best friend. they completed most of the advance directive yesterday. they had deep discussion about her prognosis and her needs. Pt would not want life prolonging treatments if declining. We discussed he decline and review of prognsois with the physician. We discussed comfort care and hospice. Pt concer and grief is that her daughter if fighting cancer and is very ill. She is distraught about putting stress on her daughter.
--- NOTE | 2020-04-12 15:13 | NUR ---
Spiritual care note: Met with physician who told me pt's dtr gave permission to friend, Irene, to make medical decisions on behalf of pt. Irene tells me that Midge "didn't want any of this" referring to breathing equipment. Irene has requested comfort care. There are some concerns about pt's dtr, Wen, who is planning to come to see pt. I have been asked to be available to facilitate calm when Wen arrives. Holdenambar appears to be working harder to breathe today. RN will administer medications to help Midge relax. Prayer with Irene at bedside.
--- NOTE | 2020-04-12 15:33 | NUR ---
Review of comfot measure with pt dear friend who is at her bedside family may be coming in.
--- NOTE | 2020-04-12 18:28 | NUR ---
SUMMARY PT WAS CHANGED TO COMFORT CARE THIS AFTERNOON. CAREGIVER REMAINS AT BEDSIDE AND HELPS MAKE NEEDS KNOWN. MEDICATING FOR COMFORT. DAUGHTER CAME IN TO SEE PT AND WANTED BIPAP REMOVED. PT WAS ABLE TO COMMUNICATE A LITTLE WITH DAUGHTER. NO SIGN OF DISTRESS NOW.
--- NOTE | 2020-04-12 19:00 | NUR ---
ASSUMPTION OF CARE RECEIVED REPORT FROM NUBIA CARRERO. ASSUMED CARE OF PATIENT. PATIENT WITH EYES CLOSED, NON RESPONSIVE TO BOTH VERBAL AND PHYSICAL STIMULI. NO S/S OF DISTRESS. CAREGIVER TO BEDSIDE. REVIEWED PLAN OF CARE AND EDUCATED REGARDING PLAN FOR COMFORT MEASURES. WILL REVIEW ORDERS AND TREAT PRESCRIBED.
--- NOTE | 2020-04-13 02:28 | NUR ---
STATUS CHANGE PATIENT NOTED TO HAVE ABSENT RESPIRATIONS AND PULSE. PER MONITOR THIS OCCURRED AT 0210. LEFT MESSAGE WITH DR. MCELROY, AWAITING CALL BACK FOR NOTIFICATION. CAREGIVER AT BEDSIDE AND NOTIFIED OF PATIENT'S CONDITION.
--- NOTE | 2020-04-13 02:40 | NUR ---
FAMILY NOTIFICATION NOTIFIED DR. MCELROY AT 0234 AND DAUGHTER AMY AT 0240 OF PATIENT'S STATUS. MARILEE REMAINS AT BEDSIDE.
--- NOTE | 2020-04-13 05:10 | NUR ---
DEEPTHI HEARD, REP FROM [facility] HERE TO RECEIVE PT.
== END 2020-04-13 02:10 | DRG 871 ==
LOC: ER 15:00 → ICUW 18:20
PROVIDERS: Emergency Medicine; Internal Medicine Critical Care Medicine; Internal Medicine Pulmonary Disease; Nurse Practitioner Acute Care; ADMIT Family Medicine
PROC: 5A09357 Assistance with Respiratory Ventilation, Less than 24 Consecutive Hours, Continuous Positive Airway Pressure (ICD-10-PCS; principal; 2020-04-08)
PROC: 0W9930Z Drainage of Right Pleural Cavity with Drainage Device, Percutaneous Approach (ICD-10-PCS; 2020-04-08)
DX: A41.51 Sepsis due to Escherichia coli [E. coli] (principal); J96.21 Acute and chronic respiratory failure with hypoxia; J69.0 Pneumonitis due to inhalation of food and vomit; J96.22 Acute and chronic respiratory failure with hypercapnia; I21.A1 Myocardial infarction type 2; G92 Toxic encephalopathy; J93.9 Pneumothorax, unspecified; J44.1 Chronic obstructive pulmonary disease with (acute) exacerbation; E87.2 Acidosis; E87.1 Hypo-osmolality and hyponatremia; J90 Pleural effusion, not elsewhere classified; N39.0 Urinary tract infection, site not specified; R65.20 Severe sepsis without septic shock; Z66 Do not resuscitate; I10 Essential (primary) hypertension; J44.9 Chronic obstructive pulmonary disease, unspecified; Z85.118 Personal history of other malignant neoplasm of bronchus and lung; Z87.891 Personal history of nicotine dependence; Z20.828 Contact with and (suspected) exposure to other viral communicable diseases; Z99.81 Dependence on supplemental oxygen; E78.00 Pure hypercholesterolemia, unspecified; I25.10 Atherosclerotic heart disease of native coronary artery without angina pectoris; Z90.2 Acquired absence of lung [part of]; Z92.21 Personal history of antineoplastic chemotherapy; Z92.3 Personal history of irradiation; E78.5 Hyperlipidemia, unspecified
CPT/HCPCS: 0202U; 0241U; 32551; 36415; 36600; 51703; 70450; 71045; 71260; 80048; 80053; 81001; 82803; 82945; 83605; 83615; 83721; 83735; 83880; 83986; 84100; 84145; 84157; 84484; 85025; 85610; 85730; 87040; 87070; 87075; 87077; 87086; 87186; 87205; 89051; 93005; 93010; 93306; 94640; 94644; 94660; 96374-59; 99291-25; A9270-GY; C1751; J0456; J0696; J1644; J1650; J1940; J2060; J2270; J2930; J3010; J7030; J7050; J7120; Q9967